=== PATIENT | female | born 1975 | race Caucasian/White ===

== ENCOUNTER → 2022-01-23 11:32 | Outpatient (BNVA) | payer MEDICAID, SELFPAY | PROVIDERS: PCP Family Medicine; Visit Provider Family Medicine | DX: Z13.6 Encounter for screening for cardiovascular disorders (principal) | CPT/HCPCS: 80053; 80061; 85025 ==

== ENCOUNTER → 2022-04-24 11:49 | Outpatient (BNVA) | payer MEDICAID, SELFPAY | PROVIDERS: PCP Family Medicine; Visit Provider Family Medicine | DX: L40.1 Generalized pustular psoriasis (principal); R60.0 Localized edema; G43.811 Other migraine, intractable, with status migrainosus | CPT/HCPCS: 85025 ==

== ENCOUNTER → 2023-11-30 10:09 | Outpatient (BNVA) | payer OTHER, SELFPAY | PROVIDERS: PCP Family Medicine; Visit Provider Family Medicine | DX: M25.50 Pain in unspecified joint (principal); Z86.39 Personal history of other endocrine, nutritional and metabolic disease | CPT/HCPCS: 80053; 84439; 84443; 85025; 85651; 86140; 86200; 86376; 86431; 86705; 86706; 86709; 86803; 87340 ==